=== PATIENT | female | born 1975 | race Caucasian/White ===

== ENCOUNTER 2018-11-14 13:28 | Emergency (ER) | payer OTHER ==
[~2018-11-14] VITALS: Ht 160 cm; Wt 56.2 kg
[2018-11-14] MEDS ORDERED: SKELAXIN800 MG PO (17:45)
== END 2018-11-14 18:10 | disposition home or self-care (01) ==
LOC: ER 13:28
DX: S00.83XA Contusion of other part of head, initial encounter (principal); W18.39XA Other fall on same level, initial encounter; Y93.89 Activity, other specified; Y92.89 Other specified places as the place of occurrence of the external cause; Y99.8 Other external cause status